=== PATIENT | male | born 1955 | race Caucasian/White ===

== ENCOUNTER 2021-02-26 22:13 | Emergency (ER) | payer SELFPAY ==
--- NOTE | ~2021-02-26 | XR_ITS ---
EXAMINATION: XR SHOULDER, LEFT CLINICAL INFORMATION: Fall COMPARISON: None TECHNIQUE: 2 view of the left shoulder. FINDINGS: Anterior dislocation of the humeral head relative to the glenoid . No evidence for underlying fracture. XR/XR shoulder LT min 2V IMPRESSION: Anterior dislocation.
--- NOTE | ~2021-02-26 | XR_ITS ---
EXAMINATION: XR SHOULDER, LEFT CLINICAL INFORMATION: Reduction shoulder dislocation COMPARISON: Prior exam of left shoulder today TECHNIQUE: Single frontal view portable of the left shoulder. FINDINGS: There is been successful reduction of previously seen shoulder dislocation. No fracture evident. XR/XR shoulder LT 1V IMPRESSION: Successful reduction of shoulder dislocation.
[2021-02-26 22:23] VITALS: BP 175/82; PULSE 83; PULSE 90; RESP 18; TEMP 36.6; O2SAT 94; O2SAT 96; BMI 24.9
[2021-02-26] MEDS: Ketamine HCl 500 MG/5 ML VIAL 100 MG IM (23:12)
--- NOTE | 2021-02-26 23:15 | PC.NURSE ---
Md at bedside to reduce shoulder dislocation. Patient agitated post procedure but able to redirect and calm down. Xray came in to verify shoulder was in place.
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
[2021-02-26 23:33] VITALS: BP 191/93; PULSE 100; RESP 19; O2SAT 95
[2021-02-26 23:47] VITALS: BP 172/96; PULSE 103; RESP 17; O2SAT 94
== END 2021-02-27 01:29 | disposition home or self-care (01) ==
PROVIDERS: Emergency Provider Internal Medicine
DX: S43.015A Anterior dislocation of left humerus, initial encounter (principal); F10.20 Alcohol dependence, uncomplicated; V18.0XXA Pedal cycle driver injured in noncollision transport accident in nontraffic accident, initial encounter; Y93.55 Activity, bike riding; Y92.410 Unspecified street and highway as the place of occurrence of the external cause; Y99.9 Unspecified external cause status
CPT/HCPCS: 23650; 73020; 73030; 96372; 99284